=== PATIENT | male | born 1985 | race Caucasian/White ===

== ENCOUNTER 2018-04-07 04:15 | Emergency (ER) | payer OTHER | END 2018-04-07 07:45 | disposition home or self-care (01) | LOC: COL.ER 04:15 | DX: R19.7 Diarrhea, unspecified (principal); R11.10 Vomiting, unspecified; B96.89 Other specified bacterial agents as the cause of diseases classified elsewhere ==

== ENCOUNTER 2018-07-25 20:36 | Emergency (ER) | payer OTHER ==
[~2018-07-25 20:36] MED LIST: PRINIVIL10 MG PO; VANCOCIN H125 MG/CAP PO; ZOFRAN ODT4 MG PO
== END 2018-07-25 20:57 | disposition left against medical advice (07) ==
LOC: COL.ER 20:36
DX: Z72.9 Problem related to lifestyle, unspecified (principal)